=== PATIENT | female | born 1955 | race Caucasian/White ===

== ENCOUNTER → 2025-03-20 09:59 | Outpatient (REF) | payer MEDICARE, OTHER, SELFPAY ==
[2025-03-20 13:22] LABS: Blood Urea Nitrogen 13 mg/dl (7-17); Calcium 9.1 mg/dl (8.4-10.2); Carbon Dioxide 30 mmol/L (22-30); Chloride 105 mmol/L (98-107); Glucose 111 mg/dl (70-99); Potassium 4.4 mmol/L (3.5-5.1); Sodium 140 mmol/L (135-145); eGFR > 60.00
== END ==
LOC: HWLAB 09:59
PROVIDERS: ATTENDING PHYSICIAN Urology; FAMILY PHYSICIAN Nurse Practitioner Family
DX: R31.29 Other microscopic hematuria (principal); R93.89 Abnormal findings on diagnostic imaging of other specified body structures
CPT/HCPCS: 36415; 80048

== ENCOUNTER → 2025-03-29 14:14 | Outpatient (REF) | payer MEDICARE, OTHER, SELFPAY | LOC: RAD 14:14 | PROVIDERS: ATTENDING PHYSICIAN Urology; FAMILY PHYSICIAN Nurse Practitioner Family | DX: R31.29 Other microscopic hematuria (principal); R93.89 Abnormal findings on diagnostic imaging of other specified body structures | CPT/HCPCS: 74178; Q9967 ==